=== PATIENT | male | born 2000 | race Hispanic/Latino ===

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

== ENCOUNTER 2019-06-21 14:52 | Emergency (ER) | payer MEDICAID, SELFPAY | END 2019-06-21 15:11 | disposition home or self-care (01) | LOC: BURERS 14:52 | DX: K52.9 Noninfective gastroenteritis and colitis, unspecified (principal) | CPT/HCPCS: 99283 ==

== ENCOUNTER 2019-12-20 17:45 | Emergency (ER) | payer OTHER, SELFPAY ==
[2019-12-20] MEDS ORDERED: predniSONE 20 MG TAB ONE (18:44)
--- NOTE | 2019-12-20 21:23 | RAD ---
PORTABLE CHEST: 12/20/19 An AP portable film at 1825 is compared with a 07/28/17 study. The heart is normal in size and the lungs are clear. There is no sign of pneumonia or pleural effusio n. There is a considerable amount of gas in the stomach. The mediastinum appears normal. IMPRESSION: No acute thoracic findings. POS: HOME
== END 2019-12-20 18:59 | disposition home or self-care (01) ==
LOC: BURERS 17:45
DX: J06.9 Acute upper respiratory infection, unspecified (principal)
CPT/HCPCS: 71045; 87804; J7512